=== PATIENT | male | born 1965 | race Two or more races ===

== ENCOUNTER 2023-11-08 15:20 | Emergency (ER) | payer OTHER ==
[~2023-11-08] VITALS: Ht 175.3 cm; Wt 145.6 kg
[~2023-11-08 15:20] MED LIST: METFORMIN HYDRO25 GM MC; VERAPAMIL HCL360 MG PO
[2023-11-08] MEDS ORDERED: DIOVAN320 MG PO (15:39)
[2023-11-08] MEDS ORDERED: VERAPAMIL ER180 MG PO (15:39)
[2023-11-08] MEDS ORDERED: GLIMEPIRIDE2 MG (15:40)
[2023-11-08] MEDS ORDERED: CEFTRIAXONE SODIUM 1,000 MG VIAL IM ONE (18:00)
[2023-11-08 18:20] LABS: HEMATOCRIT 38.8 % (39.0-48.0); HEMOGLOBIN 13.7 g/dL (13-16.00); MEAN CELL VOLUME 89.3 fL (80.0-100.00); MEAN CORPUSCULAR HEMOGLOBIN 31.5 pg (27.00-32.0); MEAN CORPUSCULAR HGB CONC 35.2 g/dl (32.0-36.0); PLATELET COUNT 183 K/uL (150-450); RED BLOOD COUNT 4.34 M/uL (4.00-6.00); RED CELL DISTRIBUTION WIDTH 12.9 % (11.5-14.5)
== END 2023-11-08 20:51 | disposition home or self-care (01) ==
LOC: ER 15:20
PROVIDERS: Emergency Medicine
DX: L02.91 Cutaneous abscess, unspecified (principal)
CPT/HCPCS: 36415; 96372; 99282; J0696